=== PATIENT | female | born 1990 | race Caucasian/White ===

== ENCOUNTER → 2024-10-09 09:19 | Outpatient (CLI) | payer BC, SELFPAY ==
--- NOTE | 2024-10-09 09:23 | DI.MG.S_ITS ---
BILATERAL DIGITAL DIAGNOSTIC MAMMOGRAM 3D/2D: 10/09/2024 CLINICAL: Right breast mass / baseline exam / family history of breast cancer. No prior exams were available for comparison. The breasts are heterogeneously dense, which may obscure small masses (category c / 51-75% glandular tissue). A skin marker was placed in the area of clinical concern, and no mammographic abnormality is identified. No significant masses, calcifications, or other findings are seen in either breast. IMPRESSION: INCOMPLETE: NEED ADDITIONAL IMAGING EVALUATION No mammographic abnormality in the area of clinical concern in the right breast. Recommend further evaluation with targeted breast ultrasound, which will immediately follow this exam. Based on Tyrer-Cuzick model (a risk assessment model), the patient's lifetime risk is 23.1% and her 10 year risk is 1.4%. If a patient has an elevated risk, a more comprehensive evaluation should be considered and/or a referral to a genetic counselor. The [employer], [employer], and NCCN Guidelines advise the consideration of Breast MRI as an adjunct to screening mammography in patients whose Lifetime risk to develop breast cancer is 20% or higher. This exam was interpreted at Station ID: [id number]. NOTE: For mammograms, a report in lay terms will be sent to the patient. Approximately 15% of breast malignancies will not be visualized mammographically. In the management of a palpable breast mass, a negative mammogram must not discourage biopsy of a clinically suspicious lesion. Electronically Signed By: Olga Martinez M.D., Ph.D. eb/:10/09/2024 10:27:18 letter sent: Additional Imaging Needed ACR BI-RADS Category 0: Incomplete: Need Additional Imaging Evaluation
--- NOTE | 2024-10-09 09:23 | DI.US.S_ITS ---
LIMITED ULTRASOUND OF RIGHT BREAST AND AXILLA: 10/09/2024 CLINICAL: Focal / intermittent right breast pain. Comparison is made to exam dated: 10/09/2024 mammogram - [facility]. Real-time ultrasound of the right breast 10 o'clock, and axilla regions was performed. Chatman scale images of the real-time examination were reviewed. No sonographic abnormality is seen in the area of clinical concern in the right breast at 10 o'clock, 6 cm from the nipple. IMPRESSION: NEGATIVE No sonographic abnormality in the area of clinical concern. No mammographic or sonographic evidence of malignancy. Recommend routine screening mammogram starting at age 40. Clinical follow-up is also recommended, and further management of palpable abnormalities or other focal signs or symptoms should be based on the results of clinical evaluation. If palpable abnormality or other concerning symptom persists or progresses, further clinical evaluation should be considered. Findings and recommendations were conveyed to the patient during today's evaluation. This exam was interpreted at Station ID: [id number]. Electronically Signed By: Olga Martinez M.D., Ph.D. eb/:10/09/2024 11:09:50 letter sent: Clinical Evaluation ACR BI-RADS Category 1: Negative
== END ==
PROVIDERS: PCP Registered Nurse; Referring Provider Registered Nurse; Visit Provider Registered Nurse
DX: R92.2 Inconclusive mammogram (principal); N63.13 Unspecified lump in the right breast, lower outer quadrant; R92.333 Mammographic heterogeneous density, bilateral breasts
CPT/HCPCS: 76642; 77066; G0279

== ENCOUNTER → 2024-11-21 13:27 | Outpatient (CLI) | payer BC, SELFPAY ==
--- NOTE | 2024-11-21 13:29 | DI.MRI.S_ITS ---
MR breast BI wo/w con: 11/21/2024. BI-RADS: 1 CLINICAL: 34-year old female for bilateral diagnostic breast MRI that is a follow-up to diagnostic, bilateral, digital, tomosynthesis on 10/09/2024. No personal or first-degree family history of breast cancer. Current reported family history of breast cancer: paternal grandmother. The patient reports a palpable abnormality and pain (3 months) in the right breast. PRIOR EXAMS 10/09/2024. MRI TECHNIQUE Bilateral breast MRI was performed on a 1.5 Nasreen magnet using a dedicated breast coil with mild compression. Axial T1 and T2 STIR sequences were obtained. Dynamic contrast enhanced VIBRANT fat-suppressed sequences were obtained. Delayed sagittal high resolution or sagittal reconstructed isotropic sequence was also obtained. Subtraction images and maximum intensity projection images were obtained. The study was evaluated using [employer] software. IV Contrast: 20 ml ProHance. FIBROGLANDULAR TISSUE Bilateral: C. Heterogeneous fibroglandular tissue. BACKGROUND PARENCHYMAL ENHANCEMENT Bilateral: Moderate symmetrical background parenchymal enhancement. BREAST FINDINGS Right: There is no suspicious MRI finding to account for patient's concern of a palpable lump and pain/tenderness. No marker is present on this exam to indicate the location of the reported right breast lump or pain. Left: Benign-appearing intramammary lymph node(s) noted. No suspicious mass, suspicious non-mass enhancement, or other concerning finding identified. Bilateral: No suspicious mass, suspicious non-mass enhancement, or other concerning finding identified. IMPRESSION: * Evaluation is limited by moderate background parenchymal enhancement. * No evidence of malignancy. RECOMMENDATIONS Right * Clinical follow-up is recommended, and further management of palpable abnormalities or other focal signs or symptoms should be based on the results of clinical evaluation. If palpable abnormality or other concerning symptom persists or progresses, further clinical evaluation should be considered. Bilateral * If lifetime risk of breast cancer is greater than 20%, recommend annual screening mammography and annual breast MRI, according to the [employer] guidelines. OVERALL ASSESSMENT CATEGORY BI-RADS-1: Negative. ELECTRONICALLY SIGNED: Aneta Winter M.D. on 11/21/2024 at 05:17:30 PM PT Interpreting Station ID: [id number]
== END ==
PROVIDERS: PCP Registered Nurse; Referring Provider Registered Nurse; Visit Provider Registered Nurse
DX: N63.13 Unspecified lump in the right breast, lower outer quadrant (principal); N64.4 Mastodynia; R92.30 Dense breasts, unspecified
CPT/HCPCS: 77049; A9579